=== PATIENT | female | born 1945 | race Caucasian/White ===

== ENCOUNTER 2017-02-23 11:12 | Emergency (ER) | payer MEDICARE, OTHER ==
[2017-02-23 14:24] VITALS: BP 175/125
== END 2017-02-23 14:24 | disposition short-term general hospital (02) ==
LOC: ED 11:12
DX: S42.424A Nondisplaced comminuted supracondylar fracture without intercondylar fracture of right humerus, initial encounter for closed fracture (principal); M54.2 Cervicalgia; X58.XXXA Exposure to other specified factors, initial encounter; Y93.89 Activity, other specified; Y99.8 Other external cause status; Y92.89 Other specified places as the place of occurrence of the external cause
CPT/HCPCS: Q0092